=== PATIENT | female | born 1990 | race Caucasian/White ===

== ENCOUNTER 2020-12-19 07:50 | Emergency (ER) | payer OTHER ==
[2020-12-19 08:52] LABS: HEMOGLOBIN 11.5 gm/dl (12.3-15.3); RED BLOOD COUNT 3.84 M/UL (4.00-5.10); WHITE BLOOD COUNT 8.7 K/UL (4.5-11.0)
[2020-12-19 09:08] LABS: BUN/CREATININE RATIO 19 (0-10)
[2020-12-19] MEDS ORDERED: MACROBID 100 M100 M1 PO (11:19)
[2020-12-19] MEDS ORDERED: ONDANSETRON ODT4 MG SL (11:19)
== END 2020-12-19 11:45 | disposition home or self-care (01) ==
LOC: ER1 07:50
PROVIDERS: Physician Assistant
DX: O20.0 Threatened abortion (principal); O23.41 Unspecified infection of urinary tract in pregnancy, first trimester; Z88.2 Allergy status to sulfonamides; Z88.5 Allergy status to narcotic agent; Z79.899 Other long term (current) drug therapy; Z3A.10 10 weeks gestation of pregnancy
CPT/HCPCS: 76801; 80053; 81001; 84702; 84703; 85025; 86900; 86901; 99284; J7030